=== PATIENT | female | born 1950 | race Caucasian/White ===

== ENCOUNTER → 2017-01-20 | Outpatient (CLI) | payer OTHER | LOC: COL.RAD 14:12 | DX: M51.26 Other intervertebral disc displacement, lumbar region (principal); R93.7 Abnormal findings on diagnostic imaging of other parts of musculoskeletal system; W19.XXXA Unspecified fall, initial encounter; Y92.512 Supermarket, store or market as the place of occurrence of the external cause; Y99.0 Civilian activity done for income or pay ==